=== PATIENT | female | born 1970 | race Caucasian/White ===

== ENCOUNTER 2019-02-01 07:10 | Day surgery (SDC) | payer MEDICAID ==
[2019-01-28 15:57] LABS: BASOPHILS # (AUTO) 0.2 X10'3 (0-0.2); BASOPHILS % (AUTO) 1.1 % (0-1); EOSINOPHILS # (AUTO) 0.4 X10'3 (0-0.9); EOSINOPHILS % (AUTO) 2.8 % (0-6); LYMPHOCYTES # (AUTO) 2.9 X10'3 (1.1-4.8); LYMPHOCYTES % (AUTO) 19.9 % (21-51); MEAN CORPUSCULAR HGB CONC 32.5 g/dL (33.0-36.5); MEAN CORPUSCULAR VOLUME 77.1 FL (78-98); MONOCYTES # (AUTO) 1.2 X10'3 (0-0.9); MONOCYTES % (AUTO) 8.4 % (2-12); NEUTROPHILS % (AUTO) 67.8 % (42-75); PRE OP HEMATOCRIT 38.3 % (35.0-45.0); PRE OP HEMOGLOBIN 12.4 g/dL (12.0-16.0); PRE OP PLATELET COUNT 416 X10'3 (140-440); RED BLOOD COUNT 4.97 X10'6 (4.20-5.60); RED CELL DISTRIBUTION WIDTH 16.2 % (11.5-14.5)
[2019-01-28 16:17] LABS: ALBUMIN 3.2 G/DL (3.4-5.0); ALBUMIN/GLOBULIN RATIO 0.7 (1.1-1.5); ALKALINE PHOSPHATASE 95 IU/L (46-116); BLOOD UREA NITROGEN 11 MG/DL (7-18); BUN/CREATININE RATIO 16.9 (6.6-38.0); CHLORIDE 104 MMOL/L (99-107); CREATININE 0.65 MG/DL (0.40-0.90); PRE OP ALT 23 U/L (30-65); PRE OP ANION GAP 8 (8-16); PRE OP AST 19 U/L (10-37); PRE OP BILIRUB, TOTAL 0.2 MG/DL (0.0-1.0); PRE OP GLUCOSE 108 MG/DL (70-104); PRE OP SODIUM 139 MMOL/L (135-145); TOTAL CARBON DIOXIDE 27.3 MMOL/L (24-32); eGFR > 90 ML/MIN
[~2019-02-01] VITALS: Ht 165.1 cm; Wt 144.0 kg
[~2019-02-01 07:10] MED LIST: BUPR150T14 PO; CHOL500026 PO; FOLI1TAB16 PO; HYDR12.5 PO; METF500T PO; METH2.5T PO; ceFAZolin 2gm in dextrose, iso 100 ML IV ONE; famotidine 20mg tablet PO ONE; ringers solution, lacted 1,000 ML IV SCH
[2019-02-01] MEDS ORDERED: ringers solution, lacted 1,000 ML IV SCH (07:11)
[2019-02-01] MEDS ORDERED: ondansetron/PF 4mg/2ml inj IV PRN (07:15)
[2019-02-01] MEDS ORDERED: labetalol 20mg/4ml (5mg/ml) syringe IV PRN (07:15)
[2019-02-01] MEDS ORDERED: morphine 4 MG/ML inj SYRINge IV PRN ×2 (07:15)
[2019-02-01] MEDS ORDERED: fentaNYL/PF 50MCG/1 ML 2ML syringe IV PRN ×2 (07:15)
[2019-02-01] MEDS ORDERED: hydrALAZINE 20mg/ml inj. IV PRN (07:15)
[2019-02-01] MEDS ORDERED: BUPIVAcaine/PF 2.5mg/ml (0.25%) 10ml vial ONE (09:18)
[2019-02-01] MEDS ORDERED: propofol 10mg/ml 20ml vial IV ONE (09:25)
[2019-02-01] MEDS ORDERED: fentaNYL/PF 50MCG/1 ML 2ML syringe ONE (09:28)
[2019-02-01] MEDS ORDERED: MIDAZolam 5mg/5ml vial ONE (09:28)
[2019-02-01] MEDS ORDERED: BUPIVAcaine/PF 2.5mg/ml (0.25%) 10ml vial IJ ONE (09:51)
[2019-02-01 09:55] VITALS: BP 113/59
--- NOTE | 2019-02-01 09:55 | NUR ---
[place] [facility] [place] Anesthesiologist EDDIE and report given by Anesthesiolgist. PT AWAKE AND ALERT, OXYGENATING WELL ON ROOM AIR. NO RESP DISTRESS NOTED. PT DENIES PAIN, HAD MAEVE BLOCK TO RUE. [facility] CHECK TO RUE WNL. VSS.
[2019-02-01 10:06] VITALS: BP 114/71
[2019-02-01 10:16] VITALS: BP 121/51
--- NOTE | 2019-02-01 10:35 | NUR ---
NO PAIN. TOLERATING PO FLUIDS WELL. VSS. DC INSTRUCTIONS EXPLAINED TO PT, SHE VERBALIZED UNDERSTANDING. ICE BAG PROVIDED FOR PT. DCD IN STABLE CONDITION, TAKEN TO CAR VIA WC.
[2019-02-01 12:50] VITALS: BP 122/71
[2019-02-01 12:53] VITALS: BP 122/71
== END 2019-02-01 10:35 | disposition home or self-care (01) ==
LOC: PAS 07:10
PROVIDERS: ATTEND Orthopaedic Surgery Hand Surgery
DX: G56.03 Carpal tunnel syndrome, bilateral upper limbs (principal); E66.01 Morbid (severe) obesity due to excess calories; G89.4 Chronic pain syndrome; E11.9 Type 2 diabetes mellitus without complications; M06.9 Rheumatoid arthritis, unspecified; M54.5 Low back pain; Z79.899 Other long term (current) drug therapy; Z87.891 Personal history of nicotine dependence
CPT/HCPCS: 29848; 36415; 80053; 82948; 85025; 93005; A6449; J0690; J2250; J2704; J3010; J3490; J7120